=== PATIENT | female | born 1960 | race Caucasian/White ===

== ENCOUNTER 2017-01-10 12:21 | Outpatient (CLI) | payer BC, OTHER ==
[2012-10-25 11:46] VITALS: O2SAT 97
== END 2017-01-10 12:22 | disposition home or self-care (01) ==
LOC: CONVCARE 12:21
PROVIDERS: ATTEND Orthopaedic Surgery
DX: M25.562 Pain in left knee (principal)
CPT/HCPCS: 73560

== ENCOUNTER 2017-01-24 09:32 | Day surgery (SDC) | payer BC ==
[2017-01-24] MEDS ORDERED: FENTANYL 100MCG/2ML SOL ONE (10:39)
[2017-01-24] MEDS ORDERED: PROPOFOL 10 MG/ML EMU IV ONE (10:39)
[2017-01-24] MEDS ORDERED: MIDAZOLAM 2 MG/2 ML SOL ONE (10:39)
[2017-01-24] MEDS ORDERED: LIDOCAINE HCL 1% MPF SOL ONE (10:39)
[2017-01-24] MEDS ORDERED: ONDANSETRON HCL 4 MG/2 ML SOL ONE (10:39)
[2017-01-24] MEDS ORDERED: CEFAZOLIN SODIUM 1 GM PDS ONE (11:07)
[2017-01-24] MEDS ORDERED: HYDROMORPHONE 1 MG/ML SYRINGE ONE (11:39)
[2017-01-24] MEDS ORDERED: KETOROLAC TROMETHAMINE 30 MG/ML SOL ONE (12:13)
[2017-01-24 16:04] VITALS: O2SAT 99
[2017-01-24 16:05] VITALS: BP 128/76; PULSE 76; RESP 14; TEMP 97.6
== END 2017-01-24 16:10 | disposition home or self-care (01) ==
LOC: SURG 09:32
PROVIDERS: ATTEND Orthopaedic Surgery
DX: M23.42 Loose body in knee, left knee (principal); M94.262 Chondromalacia, left knee
CPT/HCPCS: 29874; J0690; J1170; J1885; J2001; J2250; J2405; J2704; J3010